=== PATIENT | male | born 1950 | race Caucasian/White ===

== ENCOUNTER → 2017-07-27 | Outpatient (CLI) | payer BC ==
[~2017-07-27] MED LIST: IBUP200C14 PO; LISI1TAB3 PO; MULT-506 PO
== END | disposition home or self-care (01) ==
LOC: C.RDSM 12:07
PROVIDERS: ATTEND Physical Medicine & Rehabilitation Sports Medicine
DX: M25.561 Pain in right knee (principal)

== ENCOUNTER → 2017-09-28 | Outpatient (CLI) | payer BC ==
--- NOTE | 2017-09-28 10:55 | DIAGNOSTIC IMAGING REPORT ---
R LOWER EXT JOINT WITHOUT CLINICAL HISTORY: M25.561 pain TECHNIQUE: Multiaxial MRI acquisition COMPARISON STUDY: None FINDINGS: Findings a rather diffuse bone contusion involving the medial and central aspects of the proximal tibia. Signal characteristics otherwise are unremarkable. Potential nondisplaced incomplete cortical fracture subchondral aspect proximal right tibia at the medial tibial plateau. Potential early osteochondral defect focus medial tibial plateau measuring 1.1 cm at maximum. Moderate surrounding soft tissue edema throughout the peripheral margins of the knee region. Anterior and posterior cruciate ligaments are intact. The collateral ligaments show no evidence for disruption. Evaluation of menisci demonstrate moderate maceration posterior horn medial meniscus. There is a small focal hairline tear with focal meniscal maceration posterior horn medial meniscus. The lateral meniscus is unremarkable in overall signal character. IMPRESSION: 1. Generalized bone contusion of the medial and central tibial plateau regions with a small short segment incomplete cortical fracture subchondral region medial tibial plateau. 2. Small subchondral defect mid surface medial tibial plateau with no evidence for articular surface disruption. 3. Generalized surrounding soft tissue edematous change. 4. Small focal tear with moderate substance deterioration posterior horn medial meniscus. The above report was generated using voice recognition software. It may contain grammatical, syntax or spelling errors. Electronically signed by: Dominik Garcia M.D. 09/28/2017 10:53 AM Dictated Date/Time: 09/28/2017 10:48 AM
== END | disposition home or self-care (01) ==
LOC: C.MRI 10:04
PROVIDERS: ATTEND Physical Medicine & Rehabilitation Sports Medicine
DX: M25.561 Pain in right knee (principal); T14.8XXA Other injury of unspecified body region, initial encounter; S82.141A Displaced bicondylar fracture of right tibia, initial encounter for closed fracture; S83.241A Other tear of medial meniscus, current injury, right knee, initial encounter; X58.XXXA Exposure to other specified factors, initial encounter; M79.9 Soft tissue disorder, unspecified

== ENCOUNTER → 2017-10-05 | Outpatient (CLI) | payer BC ==
[~2017-10-05] MED LIST changes: +LISI-863 PO; -LISI1TAB3 PO
== END | disposition home or self-care (01) ==
LOC: C.RDSM 12:39
PROVIDERS: ATTEND Physical Medicine & Rehabilitation Sports Medicine
DX: M25.561 Pain in right knee (principal); M94.269 Chondromalacia, unspecified knee; S83.241A Other tear of medial meniscus, current injury, right knee, initial encounter; D75.89 Other specified diseases of blood and blood-forming organs; X58.XXXA Exposure to other specified factors, initial encounter